=== PATIENT | male | born 1990 | race Caucasian/White ===

== ENCOUNTER 2018-12-06 03:38 | Emergency (ER) | payer SELFPAY ==
[~2018-12-06] VITALS: Ht 167.6 cm; Wt 72.6 kg
[2018-12-06 03:47] VITALS: BP 135/92
--- NOTE | 2018-12-06 03:54 | NUR ---
PT AMBULATED TO BED 8 WITH VSS.
--- NOTE | 2018-12-06 04:01 | NUR ---
PT TO ED WITH C/O L SIDED RIB PAIN. PT DENIES TRAUMA OR INJURY. NO OBVIOUS DEFORMITY NOTED. PT DENIES CP/SOB. PT PLACED INTO BED, PENDING MD RYAN.
[2018-12-06] MEDS ORDERED: KETOROLAC 60 MG/2 ML VIAL IM ONE (05:10)
[2018-12-06 05:34] VITALS: BP 135/92
--- NOTE | 2018-12-06 05:34 | NUR ---
Patient discharged with v/s stable. Written and verbal after care instructions given and explained. Patient alert, oriented and verbalized understanding of instructions. Ambulatory with steady gait. All questions addressed prior to discharge. ID band removed. Patient advised to follow up with PMD. Rx of MOTRIN WAS given. Patient educated on indication of medication including possible reaction and side effects. Opportunity to ask questions provided and answered.
== END 2018-12-06 05:34 | disposition home or self-care (01) ==
LOC: MED 03:38
DX: S20.211A Contusion of right front wall of thorax, initial encounter (principal); X58.XXXA Exposure to other specified factors, initial encounter; Y93.89 Activity, other specified; Y92.89 Other specified places as the place of occurrence of the external cause; Y99.8 Other external cause status
CPT/HCPCS: 96372; 99283; J1885